=== PATIENT | female | born 1940 | race Caucasian/White ===

== ENCOUNTER → 2017-11-26 | Outpatient (CLI) | payer MEDICARE, BC ==
[~2017-11-26] MED LIST: ASPI325 PO; AZIT250 PO; CLIM.025TP TOP; MULVITMINF PO; OMEPRAZOLE MAGN20 MG PO; OSTEOFLEX
== END | disposition home or self-care (01) ==
LOC: LAB EV 09:50 → LAB SHORT 09:50
DX: N39.3 Stress incontinence (female) (male) (principal); R10.2 Pelvic and perineal pain; Z84.2 Family history of other diseases of the genitourinary system
CPT/HCPCS: 87086

== ENCOUNTER → 2018-07-06 | Outpatient (CLI) | payer MEDICARE, BC | END | disposition home or self-care (01) | LOC: LAB EV 11:30 → LAB SHORT 11:30 | DX: R82.90 Unspecified abnormal findings in urine (principal) | CPT/HCPCS: 87086 ==

== ENCOUNTER → 2020-01-31 | Outpatient (CLI) | payer MEDICARE, BC ==
[~2020-01-31] MED LIST changes: +ALORA1 EAC4 TOP; +Aspirin EC81 MG PO
[2020-02-01 14:45] LABS: Stool Occult Bld Immuno 1 Negative (NEGATIVE)
[2020-02-01 17:54] LABS: Campylobacter Sp Not Detected (NOT DETECT)
[2020-02-01 17:55] LABS: Adenovirus F 40/41 Not Detected (NOT DETECT); Astrovirus Not Detected (NOT DETECT); Cryptosporidium Not Detected (NOT DETECT); Cyclospora Cayetanensis Not Detected (NOT DETECT); E. Coli O157 Not Detected (NOT DETECT); Entamoeba Histolytica Not Detected (NOT DETECT); Enteroaggregative E. coli-EAEC Not Detected (NOT DETECT); Enteropathogenic E. coli-EPEC Detected (NOT DETECT); Enterotoxigenic E. coli-ETEC Not Detected (NOT DETECT); Giardia Lamblia Not Detected (NOT DETECT); Norovirus GI/GII Not Detected (NOT DETECT); Plesiomonas Shigelloides Not Detected (NOT DETECT); Rotavirus A Not Detected (NOT DETECT); Salmonella Sp Not Detected (NOT DETECT); Sapovirus Not Detected (NOT DETECT); Shiga Toxin-prod E. coli-STEC Not Detected (NOT DETECT); Shigella/Enteroin E. coli-EIEC Not Detected (NOT DETECT); Vibrio Cholerae Not Detected (NOT DETECT); Vibrio Sp Not Detected (NOT DETECT); Yersinia Enterocolitica Not Detected (NOT DETECT)
[2020-02-02 15:11] LABS: FATS, NEUTRAL Normal (.); FATS, TOTAL Normal (.)
== END | disposition home or self-care (01) ==
LOC: LAB SHORT 11:27 → LAB 11:27
PROVIDERS: Family Medicine
DX: K52.9 Noninfective gastroenteritis and colitis, unspecified (principal)
CPT/HCPCS: 0097U; 82705; G0328

== ENCOUNTER → 2020-05-05 | Outpatient (CLI) | payer MEDICARE, BC ==
[~2020-05-05] MED LIST changes: +DOC250 PO; +HYDR1TAB94 PO; +LIDO700A20 TOP; +Norco 5-325 Ta1 EACH PO
[2020-05-06 08:18] LABS: Stool Occult Bld Immuno 1 Negative (NEGATIVE)
== END | disposition home or self-care (01) ==
LOC: LAB 11:58 → LAB SHORT 11:58 → LAB FUT 01-26 10:55
PROVIDERS: Family Medicine
DX: K52.9 Noninfective gastroenteritis and colitis, unspecified (principal)
CPT/HCPCS: G0328

== ENCOUNTER → 2020-05-17 | Outpatient (CLI) | payer MEDICARE, BC | LOC: LAB 12:11 → LAB SHORT 12:11 | DX: Z20.828 Contact with and (suspected) exposure to other viral communicable diseases (principal) | CPT/HCPCS: U0003 ==

== ENCOUNTER 2020-07-19 06:13 | Emergency (ER) | payer MEDICARE, BC ==
[~2020-07-19] VITALS: Ht 165.1 cm; Wt 70.8 kg
[~2020-07-19 06:13] MED LIST changes: -DOC250 PO; -HYDR1TAB94 PO; -LIDO700A20 TOP; -Norco 5-325 Ta1 EACH PO
[2020-07-19 07:04] LABS: BASOPHILS ABSOLUTE AUTO 0.03 K/mm3 (0.00-0.23); BASOPHILS PERCENT AUTO 0 % (0-2); EOSINOPHILS ABSOLUTE AUTO 0.08 K/mm3 (0.00-0.68); EOSINOPHILS PERCENT AUTO 1 % (0-6); Hematocrit 40.9 % (33.0-51.0); Hemoglobin 13.9 g/dL (11.5-16.0); IMMATURE GRAN ABSOLUTE AUTO 0.03 K/mm3 (0.00-0.10); IMMATURE GRAN PERCENT AUTO 0 % (0-1); LYMPHOCYTES PERCENT AUTO 33 % (21-46); MONOCYTES ABSOLUTE AUTO 0.44 K/mm3 (0.16-1.47); MONOCYTES PERCENT AUTO 6 % (4-13); Mean Corpuscular HGB 33.2 pg (26.0-34.0); Mean Corpuscular Volume 98 fL (80-100); Mean Platelet Volume 9.2 fL (9.1-12.4); NEUTROPHILS ABSOLUTE AUTO 4.19 K/mm3 (1.96-9.15); NEUTROPHILS PERCENT AUTO 59 % (41-73); Platelet Count 191 K/mm3 (150-400); RDW Coefficient Variation 13.3 % (11.7-14.2); RDW Standard Deviation 47.2 fL (35.1-46.3); Red Blood Cell Count 4.19 M/mm3 (3.80-5.20); White Blood Cell Count 7.07 K/mm3 (4.00-11.30)
[2020-07-19 07:25] LABS: Alanine Aminotransfer (ALT/SGP 20 U/L (12-78); Albumin, Blood 3.1 g/dL (3.4-5.0); Albumin/Globulin Ratio 0.8 (0.8-1.8); Alk Phos 55 U/L (50-136); Anion Gap 5 mmol/L (6-16); Aspartate Aminotrans (AST/SGOT 17 U/L (12-37); Bilirubin, Total 1.1 mg/dL (0.1-1.0); Blood Urea Nitrogen 12 mg/dL (8-24); Bun/Creatinine Ratio 14.4 (12.0-20.0); CO2, Blood 26 mmol/L (21-32); Calcium, Blood 9.4 mg/dL (8.5-10.1); Chloride, Blood 110 mmol/L (98-108); Creatinine, Blood 0.84 mg/dL (0.40-1.00); Globulin, Blood 3.9 g/dL (2.2-4.0); Glomerular Filtration Rate >60 (60-); Glucose, Blood 94 mg/dL (70-99); Potassium, Blood 3.8 mmol/L (3.5-5.5); Sodium, Blood 141 mmol/L (136-145); Troponin I <0.015 ng/mL (0.000-0.040)
[2020-07-19 07:35] LABS: Source, Urine Clean Catch
[2020-07-19 07:45] LABS: Appearance, Urine Hazy (Clear); Bilirubin, Urine Neg (Neg); Blood, Urine 3+ (Neg); Color, Urine Yellow (P-Yellow); Glucose Qualitative, Urine Neg (Neg); Ketones, Urine Neg (Neg); Leukocyte Esterase, Urine 1+ (Neg); Nitrite, Urine Neg (Neg); Protein, Urine 1+ (Neg); Specific Gravity, Urine 1.015 (1.003-1.022); Urobilinogen, Urine NORM (Normal)
[2020-07-19 08:08] LABS: Bacteria Mod /hpf
[2020-07-19 08:13] LABS: Mucus Light (0-Heavy)
[2020-07-19 08:14] LABS: Squamous Epithelial Cells Many /hpf (Few)
[2020-07-19] MEDS ORDERED: LIDO700A20 TOP (08:49)
[2020-07-19] MEDS ORDERED: HYDR1TAB94 PO (08:49)
[2020-07-19] MEDS ORDERED: DOC250 PO (08:49)
== END 2020-07-19 09:00 | disposition home or self-care (01) ==
LOC: ER 06:13
PROVIDERS: Emergency Medicine
DX: S20.211A Contusion of right front wall of thorax, initial encounter (principal); S20.212A Contusion of left front wall of thorax, initial encounter; J44.9 Chronic obstructive pulmonary disease, unspecified; K21.9 Gastro-esophageal reflux disease without esophagitis; Z79.899 Other long term (current) drug therapy; Z88.0 Allergy status to penicillin; Z88.5 Allergy status to narcotic agent; Z88.1 Allergy status to other antibiotic agents; W18.30XA Fall on same level, unspecified, initial encounter
CPT/HCPCS: 36415; 71046; 80053; 81001; 84484; 85025; 87086; 93005; 93010; 96374; 96375; 99284-25; J2405; J3010

== ENCOUNTER 2020-07-31 14:11 | Emergency (ER) | payer MEDICARE, BC ==
[~2020-07-31] VITALS: Ht 170.2 cm; Wt 80.7 kg
[~2020-07-31 14:11] MED LIST changes: +DOC250 PO; +HYDR1TAB94 PO; +LIDO700A20 TOP
[2020-07-31 14:58] LABS: BASOPHILS ABSOLUTE AUTO 0.06 K/mm3 (0.00-0.23); BASOPHILS PERCENT AUTO 1 % (0-2); EOSINOPHILS ABSOLUTE AUTO 0.06 K/mm3 (0.00-0.68); EOSINOPHILS PERCENT AUTO 1 % (0-6); Hematocrit 44.9 % (33.0-51.0); Hemoglobin 15.3 g/dL (11.5-16.0); IMMATURE GRAN ABSOLUTE AUTO 0.02 K/mm3 (0.00-0.10); IMMATURE GRAN PERCENT AUTO 0 % (0-1); LYMPHOCYTES ABSOLUTE AUTO 2.52 K/mm3 (0.84-5.20); LYMPHOCYTES PERCENT AUTO 33 % (21-46); MONOCYTES ABSOLUTE AUTO 0.38 K/mm3 (0.16-1.47); MONOCYTES PERCENT AUTO 5 % (4-13); Mean Corpuscular HGB 33.3 pg (26.0-34.0); Mean Corpuscular HGB Conc 34.1 g/dL (31.5-36.5); Mean Corpuscular Volume 98 fL (80-100); Mean Platelet Volume 9.1 fL (9.1-12.4); NEUTROPHILS ABSOLUTE AUTO 4.63 K/mm3 (1.96-9.15); NEUTROPHILS PERCENT AUTO 60 % (41-73); Platelet Count 253 K/mm3 (150-400); RDW Standard Deviation 45.9 fL (35.1-46.3); White Blood Cell Count 7.67 K/mm3 (4.00-11.30)
[2020-07-31 15:17] LABS: Alanine Aminotransfer (ALT/SGP 40 U/L (12-78); Albumin, Blood 3.4 g/dL (3.4-5.0); Albumin/Globulin Ratio 0.8 (0.8-1.8); Alk Phos 94 U/L (50-136); Anion Gap 6 mmol/L (6-16); Aspartate Aminotrans (AST/SGOT 23 U/L (12-37); Bilirubin, Total 0.9 mg/dL (0.1-1.0); Blood Urea Nitrogen 12 mg/dL (8-24); Bun/Creatinine Ratio 14.5 (12.0-20.0); CO2, Blood 28 mmol/L (21-32); Calcium, Blood 9.7 mg/dL (8.5-10.1); Chloride, Blood 105 mmol/L (98-108); Creatinine, Blood 0.83 mg/dL (0.40-1.00); Globulin, Blood 4.2 g/dL (2.2-4.0); Glomerular Filtration Rate >60 (60-); Glucose, Blood 105 mg/dL (70-99); Potassium, Blood 4.2 mmol/L (3.5-5.5); Sodium, Blood 139 mmol/L (136-145); Total Protein, Blood 7.6 g/dL (6.4-8.2)
[2020-07-31 17:42] LABS: Source, Urine Clean Catch
[2020-07-31 17:47] LABS: Appearance, Urine Hazy (Clear); Bilirubin, Urine Neg (Neg); Blood, Urine 4+ (Neg); Color, Urine Yellow (P-Yellow); Glucose Qualitative, Urine Neg (Neg); Ketones, Urine Neg (Neg); Leukocyte Esterase, Urine 1+ (Neg); Nitrite, Urine Neg (Neg); Protein, Urine Neg (Neg); Urobilinogen, Urine NORM (Normal)
[2020-07-31 18:13] LABS: Bacteria Few /hpf; Squamous Epithelial Cells Few /hpf (Few); White Blood Cells, Urine 0-2 /hpf (0-5)
[2020-07-31] MEDS ORDERED: Norco 5-325 Ta1 EACH PO (20:21)
== END 2020-07-31 20:50 | disposition home or self-care (01) ==
LOC: ER 14:11
PROVIDERS: Emergency Medicine
DX: S22.42XA Multiple fractures of ribs, left side, initial encounter for closed fracture (principal); S32.029A Unspecified fracture of second lumbar vertebra, initial encounter for closed fracture; R31.9 Hematuria, unspecified; Z79.899 Other long term (current) drug therapy; X50.1XXA Overexertion from prolonged static or awkward postures, initial encounter; Z88.0 Allergy status to penicillin; Z88.5 Allergy status to narcotic agent; Z88.1 Allergy status to other antibiotic agents; J44.9 Chronic obstructive pulmonary disease, unspecified; K21.9 Gastro-esophageal reflux disease without esophagitis
CPT/HCPCS: 71101; 74176; 80053; 81001; 85025; 87086; 96374; 96375; 96376; 99284-25; A9270; J1885; J2270

== ENCOUNTER 2021-01-30 16:26 | Emergency (ER) | payer MEDICARE, BC ==
[~2021-01-30] VITALS: Ht 177.8 cm; Wt 79.4 kg
[~2021-01-30 16:26] MED LIST changes: +Norco 5-325 Ta1 EACH PO
[2021-01-30 17:51] LABS: Alanine Aminotransfer (ALT/SGP 45 U/L (12-78); Albumin, Blood 3.3 g/dL (3.4-5.0); Albumin/Globulin Ratio 0.8 (0.8-1.8); Alk Phos 64 U/L (50-136); Anion Gap 9 mmol/L (6-16); Aspartate Aminotrans (AST/SGOT 83 U/L (12-37); Bilirubin, Total 1.5 mg/dL (0.1-1.0); Blood Urea Nitrogen 12 mg/dL (8-24); Bun/Creatinine Ratio 16.2 (12.0-20.0); CO2, Blood 20 mmol/L (21-32); Calcium, Blood 9.9 mg/dL (8.5-10.1); Chloride, Blood 108 mmol/L (98-108); Creatinine, Blood 0.74 mg/dL (0.40-1.00); Globulin, Blood 4.4 g/dL (2.2-4.0); Glomerular Filtration Rate >60 (60-); Glucose, Blood 92 mg/dL (70-99); Potassium, Blood 4.1 mmol/L (3.5-5.5); Sodium, Blood 137 mmol/L (136-145); Total Protein, Blood 7.7 g/dL (6.4-8.2); Troponin I <0.015 ng/mL (0.000-0.040)
[2021-01-30 19:02] LABS: Magnesium, Blood 2.1 mg/dL (1.6-2.4)
[2021-01-30 19:13] LABS: BASOPHILS ABSOLUTE AUTO 0.03 K/mm3 (0.00-0.23); BASOPHILS PERCENT AUTO 0 % (0-2); EOSINOPHILS ABSOLUTE AUTO 0.03 K/mm3 (0.00-0.68); EOSINOPHILS PERCENT AUTO 0 % (0-6); Hematocrit 47.7 % (33.0-51.0); IMMATURE GRAN ABSOLUTE AUTO 0.03 K/mm3 (0.00-0.10); IMMATURE GRAN PERCENT AUTO 0 % (0-1); LYMPHOCYTES ABSOLUTE AUTO 2.31 K/mm3 (0.84-5.20); LYMPHOCYTES PERCENT AUTO 20 % (21-46); MONOCYTES ABSOLUTE AUTO 0.58 K/mm3 (0.16-1.47); MONOCYTES PERCENT AUTO 5 % (4-13); Mean Corpuscular HGB 33.1 pg (26.0-34.0); Mean Corpuscular HGB Conc 33.5 g/dL (31.5-36.5); Mean Corpuscular Volume 99 fL (80-100); Mean Platelet Volume 9.1 fL (9.1-12.4); NEUTROPHILS ABSOLUTE AUTO 8.35 K/mm3 (1.96-9.15); NEUTROPHILS PERCENT AUTO 74 % (41-73); Platelet Count 243 K/mm3 (150-400); RDW Coefficient Variation 13.2 % (11.7-14.2); RDW Standard Deviation 47.8 fL (35.1-46.3); Red Blood Cell Count 4.84 M/mm3 (3.80-5.20); White Blood Cell Count 11.33 K/mm3 (4.00-11.30)
== END 2021-01-30 22:08 | disposition home or self-care (01) ==
LOC: ER 16:26
PROVIDERS: Emergency Medicine
DX: R07.9 Chest pain, unspecified (principal); J44.9 Chronic obstructive pulmonary disease, unspecified; K21.9 Gastro-esophageal reflux disease without esophagitis; Z88.1 Allergy status to other antibiotic agents; Z88.0 Allergy status to penicillin; Z88.5 Allergy status to narcotic agent; Z88.8 Allergy status to other drugs, medicaments and biological substances; Z79.899 Other long term (current) drug therapy; Z87.891 Personal history of nicotine dependence
CPT/HCPCS: 36415; 71045; 80053; 83690; 83735; 83880; 84484; 85025; 93005; 93010; 99285-25; G0480

== ENCOUNTER → 2021-03-27 | Outpatient (CLI) | payer MEDICARE, BC | END | disposition home or self-care (01) | LOC: LAB 13:34 → LAB SHORT 13:34 | DX: N39.0 Urinary tract infection, site not specified (principal) | CPT/HCPCS: 87086 ==

== ENCOUNTER 2022-06-25 17:55 | Inpatient (IN) | payer OTHER, BC ==
[~2022-06-25] VITALS: Ht 167.6 cm; Wt 80.7 kg
[~2022-06-25 17:55] MED LIST changes: +OMEP20ER PO; -OMEPRAZOLE MAGN20 MG PO
[2022-06-25 18:19] LABS: BASOPHILS ABSOLUTE AUTO 0.02 K/mm3 (0.00-0.23); BASOPHILS PERCENT AUTO 0 % (0-2); EOSINOPHILS ABSOLUTE AUTO 0.01 K/mm3 (0.00-0.68); EOSINOPHILS PERCENT AUTO 0 % (0-6); Hematocrit 44.2 % (33.0-51.0); Hemoglobin 15.5 g/dL (11.5-16.0); IMMATURE GRAN ABSOLUTE AUTO 0.04 K/mm3 (0.00-0.10); IMMATURE GRAN PERCENT AUTO 0 % (0-1); LYMPHOCYTES ABSOLUTE AUTO 1.44 K/mm3 (0.84-5.20); LYMPHOCYTES PERCENT AUTO 15 % (21-46); MONOCYTES ABSOLUTE AUTO 0.71 K/mm3 (0.16-1.47); MONOCYTES PERCENT AUTO 7 % (4-13); Mean Corpuscular HGB 34.2 pg (26.0-34.0); Mean Corpuscular HGB Conc 35.1 g/dL (31.5-36.5); Mean Corpuscular Volume 98 fL (80-100); Mean Platelet Volume 9.3 fL (9.1-12.4); NEUTROPHILS ABSOLUTE AUTO 7.43 K/mm3 (1.96-9.15); NEUTROPHILS PERCENT AUTO 77 % (41-73); NRBC ABSOLUTE 0.02 K/mm3 (0.00-0.02); NRBC Auto 0.2 /100 WBC (0.0-0.2); Platelet Count 208 K/mm3 (150-400); RDW Coefficient Variation 13.6 % (11.7-14.2); RDW Standard Deviation 48.4 fL (35.1-46.3); Red Blood Cell Count 4.53 M/mm3 (3.80-5.20); White Blood Cell Count 9.65 K/mm3 (4.00-11.30)
[2022-06-25] MEDS ORDERED: OMEP20ER PO (18:29)
[2022-06-25 18:52] LABS: Albumin, Blood 3.5 g/dL (3.4-5.0); Bilirubin, Total 1.9 mg/dL (0.1-1.0); Bun/Creatinine Ratio 9.9 (12.0-20.0); Calcium, Blood 9.7 mg/dL (8.5-10.1); Creatinine, Blood 0.81 mg/dL (0.40-1.00); Globulin, Blood 3.6 g/dL (2.2-4.0); Potassium, Blood 3.7 mmol/L (3.5-5.5); Total Protein, Blood 7.1 g/dL (6.4-8.2)
[2022-06-25 19:11] LABS: Creatine Kinase MB 11.6 ng/mL (0.0-3.6); Creatine Kinase MB Index 0.9 (0.0-4.0)
[2022-06-25 23:03] LABS: Source, Urine Foley catheter
[2022-06-25 23:11] LABS: Appearance, Urine Clear (Clear); Bilirubin, Urine Neg (Neg); Blood, Urine 1+ (Neg); Color, Urine Yellow (P-Yellow); Glucose Qualitative, Urine Neg (Neg); Ketones, Urine 3+ (Neg); Leukocyte Esterase, Urine Neg (Neg); Nitrite, Urine Neg (Neg); Protein, Urine 1+ (Neg); Specific Gravity, Urine 1.025 (1.003-1.022); Urobilinogen, Urine NORM (Normal)
[2022-06-25 23:21] LABS: Hyaline Casts 0-2 /lpf (0-2)
[2022-06-25 23:22] LABS: Bacteria Few /hpf; Red Blood Cells, Urine 0-2 /hpf (0-2); Squamous Epithelial Cells Mod /hpf (Few); White Blood Cells, Urine 0-2 /hpf (0-5)
--- NOTE | 2022-06-26 00:02 | NUR ---
PATIENT ARRIVED TO UNIT @2200 VITALS STABLE, BACON PLACED PER ORDERS. IV FLUIDS RUNNING. PATIENT IS ALERT BUT FORGERT OF DETAILS AND HISTORY. BED ALARM IS PLACED FOR SAFETY. PATIENT IS ORIENTED TO CALL LIGHT SYSTEM. ORDERS REVIEWED, SCD'S IN PLACE. SURGICAL PACKET ON CHART. WILL MONITOR FOR CHANGES AND TREAT PER ORDERS.
--- NOTE | 2022-06-26 04:33 | NUR ---
SUMMARY NO ACUTE EVENTS SINCE LAST NOTE. PATIENT ADMITTED FOR L HIP FX. L LEG IS EXTERNALLY ROTATED AND VISIBLY SHORTER THAN THE RIGHT LEG. PATIENT MEDICATED FOR PAIN PER EMAR. NPO SINCE MIDNIGHT, SURGICAL SAND MIXER OPERATOR APPLIED TO LEFT LEG. VSS, BED ALARM IS ON FOR SAFETY, CALL LIGHT IN REACH.
--- NOTE | 2022-06-26 13:23 | NUR ---
TO OR VIA HOSPITAL BED
--- NOTE | 2022-06-26 19:22 | NUR ---
SHIFT SUMMARY ASSUMED CARE OF PATIENT AT 1400. PATIENT WAS AT OR AND RETURNED AT 1730. ALERT AND ORIENTED IN BED. DENIED PAIN, N/V. POST OP VSS. ROUTINE IV FLUIDS RUNNING. TXA 1ST DOSE GIVEN. LEFT HIP WITH AQUACEL WITH SMALL AMOUNT OF SS DRAINAGE. ABLE TO WIGGLE LE TOES AND ANKLES, REPORTS FULL SENSATION. BACON WITH STEVE URINE OUTPUT. TOLERATING SIPS OF WATER. NSR IN THE 90S ON TELE PER SCRAP DROP ENGINEER. SON ATTENTIVE IN ROOM. REPORT GIVEN TO ROAD PRODUCTION GENERAL MANAGER RN.
--- NOTE | 2022-06-27 06:00 | NUR ---
SHIFT SUMMARY: PODx1 L PEDRO LUIS HIP. X1 AQUACEL REMAINS IN PLACE WITH SLIGHT DRAINAGE NOTED, REMAINS UNCHANGED SINCE START OF SHIFT. RESTED COMFORTABLY T/O THE NIGHT. MEDICATED FOR PAIN ONCE DURING THE SHIFT. PAIN WAS WELL MANAGED. TOLERATING PO FLUIDS AND SNACKS AT THIS TIME. DOES NOT REPORT A BIG APPETITE. BACON REMAINS IN PLACE, PATENT AND DRAINING TO GRAVITY. CALL LIGHT IN REACH, WILL GIVE REPORT TO DAY TIME RN.
--- NOTE | 2022-06-27 09:55 | NUR ---
06/27/22 0955 Latrice Isabel VERIFICATIONS: EDIT CHART.
--- NOTE | 2022-06-27 10:18 | NUR ---
LOW BP PT REPORTS FEELING DIZZY WITH SYSTOLIC BP OF 88. DR. ROBLES NOTIFIED. PLAN TO GIVE 500ML BOLUS TO IMPROVE BP.
--- NOTE | 2022-06-27 14:34 | NUR ---
Pt. is sitting up and welcomes my visit. Pt. is pleasant but at times displays evidence of confusion. Listen with empathy and a calmiing presence. Facilitated a life review. pt. verbalizes that her children are local and support her. Pt. also verbalizes that she expects to go to a local SNF for rehab. Pt. displays evidence of being comforted and having trust in her medical and spiritual care. Prayed with Pt. Pt. verbalizes gratitude for the spiritual care visit.
--- NOTE | 2022-06-27 16:16 | NUR ---
SHIFT SUMMARY PT IS POD#1 FROM L PEDRO LUIS HIP REPAIR. PAIN MANAGED WITH PO PAIN MEDICATION. PT WORKED WITH THERAPY TODAY AND IS A 2 PERSON ASSIST. BP DROPPED DURING THERAPY BUT BP IMPROVED AFTER A FLUID BOLUS. WILL MONITOR UNTIL REPORT TO FRANKY ROBERTO.
--- NOTE | 2022-06-27 19:33 | NUR ---
URINARY OUTPUT PT HAD 200ML OF URINE OUT IN BACON CATH PRIOR TO REMOVAL OF CATHETER. NEARING 6 HOURS SINCE CATHETER REMOVED AND PT HAS NOT VOIDED. BLADDER SCAN SHOWED 153ML IN BLADDER. PT ENCOURAGED TO DRINK FLUIDS. DR. ELIZABETH NOTIFIED.
--- NOTE | 2022-06-28 03:31 | NUR ---
BILLING SERVICES MANAGER SUMMARY PT IS POD 1 FOR L PEDRO LUIS HIP. SMALL AREA OF SHADOWING TO AQUACEL DRESSING THAT IS UNCHANGED FROM START OF SHIFT. PT AAOX4 AND PLEASANT. PT IS A 2 MAX ASSIST WHEN OUT OF BED SO HAS ELECTED TO USE BEDPAN TO VOID. MEDICATED ONCE FOR PAIN WITH OXY 5MG AND SCHEDULED TYLENOL. VSS, WILL CONTINUE TO MONITOR.
[2022-06-28 05:31] LABS: BASOPHILS ABSOLUTE AUTO 0.03 K/mm3 (0.00-0.23); BASOPHILS PERCENT AUTO 1 % (0-2); EOSINOPHILS ABSOLUTE AUTO 0.12 K/mm3 (0.00-0.68); EOSINOPHILS PERCENT AUTO 2 % (0-6); Hematocrit 34.6 % (33.0-51.0); Hemoglobin 11.9 g/dL (11.5-16.0); IMMATURE GRAN ABSOLUTE AUTO 0.02 K/mm3 (0.00-0.10); IMMATURE GRAN PERCENT AUTO 0 % (0-1); LYMPHOCYTES ABSOLUTE AUTO 1.03 K/mm3 (0.84-5.20); LYMPHOCYTES PERCENT AUTO 18 % (21-46); MONOCYTES PERCENT AUTO 5 % (4-13); Mean Corpuscular HGB 34.1 pg (26.0-34.0); Mean Corpuscular HGB Conc 34.4 g/dL (31.5-36.5); Mean Corpuscular Volume 99 fL (80-100); Mean Platelet Volume 9.7 fL (9.1-12.4); NEUTROPHILS ABSOLUTE AUTO 4.38 K/mm3 (1.96-9.15); NEUTROPHILS PERCENT AUTO 75 % (41-73); Platelet Count 141 K/mm3 (150-400); RDW Coefficient Variation 13.4 % (11.7-14.2); RDW Standard Deviation 48.2 fL (35.1-46.3); Red Blood Cell Count 3.49 M/mm3 (3.80-5.20); White Blood Cell Count 5.88 K/mm3 (4.00-11.30)
[2022-06-28 05:47] LABS: Albumin, Blood 2.3 g/dL (3.4-5.0); Anion Gap 2 mmol/L (6-16); Blood Urea Nitrogen 9 mg/dL (8-24); Bun/Creatinine Ratio 11.2 (12.0-20.0); CO2, Blood 29 mmol/L (21-32); Chloride, Blood 103 mmol/L (98-108); Glomerular Filtration Rate 74 (60-); Glucose, Blood 105 mg/dL (70-99); Magnesium, Blood 1.9 mg/dL (1.6-2.4); Phosphorus, Blood 2.8 mg/dL (2.5-4.9); Potassium, Blood 3.7 mmol/L (3.5-5.5); Sodium, Blood 134 mmol/L (136-145)
[2022-06-28 12:18] LABS: SARS-Cov-2 (COVID-19) PCR, MMC NEGATIVE (NEGATIVE)
--- NOTE | 2022-06-28 12:38 | NUR ---
ALCOHOL WITHDRAWAL UPON AM ASSESSMENT PT WAS NOTED TO HAVE INCREASED DROWSINESS, SLURRED SPEECH, SLOW TO RESPOND, AGGITATION, ANXIETY, NAUSEA, ITCHING, AND ISSUES WITH DEPTH PERCEPTION. CIWA SCORE OF 7. DR. ROBLES NOTIFIED OF CONCERNS. PT DECLINED LIBRIUM AND STATED SHE DOES NOT PLAN TO STOP DRINKING. INITIALLY PT ALSO DECLINED A GLASS OF WINE. PT WAS EDUCATED ABOUT THE RISKS OF ALCOHOL WITHDRAWAL AND THAT WORSENING WITHDRAWAL SYMPTOMS LIKELY IF SHE WAS UNWILLING TO DRINK WINE OR TAKE LIBRIUM. PT CHOSE TO HAVE A GLASS OF WINE. PT WAS REASSESSED AT 1112 AND CIWA SCORE DECREASED TO 4 AFTER PT HAD A GLASS OF WINE. PT WAS IRRITABLE WHEN DISCUSSING ALCOHOL USE, EDUCATION WAS GIVEN REGARDING IMPORTANCE OF MANAGING WITHDRAWAL. WILL CONTINUE TO MONITOR.
--- NOTE | 2022-06-28 14:55 | NUR ---
18G IV REMOVED FROM LFA AT THIS TIME. SITE WNL. CATHETER INTACT.
--- NOTE | 2022-06-28 15:05 | NUR ---
ATTEMPTED TO CALL REPORT TO SHIRLENE
--- NOTE | 2022-06-28 15:18 | NUR ---
ATTEMPTED TO CALL REPORT TO SHIRLENE.
--- NOTE | 2022-06-28 15:25 | NUR ---
ATTEMPT TO CALL REPORT TO [facility]. NOTIFIED [facility] STAFF THAT TRANSPORT HAS ARRIVED FOR THE PT AND THIS RN IS HOPING TO GIVE REPORT PRIOR TO PT LEAVING WITH TRANSPORT.
--- NOTE | 2022-06-28 15:41 | NUR ---
DISCHARGE REPORT GIVEN TO ZARIA AT [facility]. PT DISCHARGED AT APPROXIMATELY 1535. PAIN MANAGED AT TIME OF DISCHARGE. PACKET AND CLEAN DRESSINGS SENT WITH TRANSPORT. VSS.
== END 2022-06-28 15:35 | DRG 522 ==
LOC: ER 17:55 → SURS 21:28
PROVIDERS: Emergency Medicine; Family Medicine; Orthopaedic Surgery; ADMIT Internal Medicine
PROC: 0SRS0J9 Replacement of Left Hip Joint, Femoral Surface with Synthetic Substitute, Cemented, Open Approach (ICD-10-PCS; principal; 2022-06-26 14:00)
DX: S72.002A Fracture of unspecified part of neck of left femur, initial encounter for closed fracture (principal); M62.82 Rhabdomyolysis; Z20.822 Contact with and (suspected) exposure to COVID-19; Z28.21 Immunization not carried out because of patient refusal; K21.9 Gastro-esophageal reflux disease without esophagitis; J44.9 Chronic obstructive pulmonary disease, unspecified; F10.10 Alcohol abuse, uncomplicated; F41.9 Anxiety disorder, unspecified; F32.A Depression, unspecified; E66.3 Overweight; Z90.49 Acquired absence of other specified parts of digestive tract; Z98.49 Cataract extraction status, unspecified eye; Z98.890 Other specified postprocedural states; Z87.891 Personal history of nicotine dependence; Z88.0 Allergy status to penicillin; Z88.1 Allergy status to other antibiotic agents; Z88.5 Allergy status to narcotic agent; Z88.8 Allergy status to other drugs, medicaments and biological substances; Z79.899 Other long term (current) drug therapy; W18.39XA Other fall on same level, initial encounter; Y92.019 Unspecified place in single-family (private) house as the place of occurrence of the external cause
CPT/HCPCS: 36415; 70450; 72192; 73502; 73560-LT; 80053; 80069; 81001; 82550; 82553; 82947; 83735; 85025; 93005; 93010; 96374; 96375; 97110; 97162; 97166; 97530; 97530-CQ; 97535; 99285-25; A9270; C1713; C1776; J0171; J0690; J0735; J1170; J1885; J2370; J2405; J2704; J2795; J3010; J7030; J7120; U0004

== ENCOUNTER → 2022-11-20 | Outpatient (CLI) | payer OTHER, BC ==
[2022-11-20 15:19] LABS: BASOPHILS ABSOLUTE AUTO 0.05 K/mm3 (0.00-0.23); BASOPHILS PERCENT AUTO 1 % (0-2); EOSINOPHILS ABSOLUTE AUTO 0.05 K/mm3 (0.00-0.68); EOSINOPHILS PERCENT AUTO 1 % (0-6); Hematocrit 44.4 % (33.0-51.0); Hemoglobin 15.5 g/dL (11.5-16.0); IMMATURE GRAN ABSOLUTE AUTO 0.02 K/mm3 (0.00-0.10); IMMATURE GRAN PERCENT AUTO 0 % (0-1); LYMPHOCYTES ABSOLUTE AUTO 2.04 K/mm3 (0.84-5.20); LYMPHOCYTES PERCENT AUTO 41 % (21-46); MONOCYTES ABSOLUTE AUTO 0.31 K/mm3 (0.16-1.47); MONOCYTES PERCENT AUTO 6 % (4-13); Mean Corpuscular HGB 33.4 pg (26.0-34.0); Mean Corpuscular HGB Conc 34.9 g/dL (31.5-36.5); Mean Corpuscular Volume 96 fL (80-100); NEUTROPHILS ABSOLUTE AUTO 2.54 K/mm3 (1.96-9.15); NEUTROPHILS PERCENT AUTO 51 % (41-73); RDW Coefficient Variation 14.6 % (11.7-14.2); RDW Standard Deviation 50.4 fL (35.1-46.3); Red Blood Cell Count 4.64 M/mm3 (3.80-5.20); White Blood Cell Count 5.01 K/mm3 (4.00-11.30)
[2022-11-20 15:20] LABS: Mean Platelet Volume 10.1 fL (9.1-12.4); Platelet Count 156 K/mm3 (150-400)
[2022-11-20 15:36] LABS: Albumin, Blood 3.6 g/dL (3.4-5.0); Albumin/Globulin Ratio 1.1 (0.8-1.8); Bilirubin, Total 1.3 mg/dL (0.1-1.0); Bun/Creatinine Ratio 10.8 (12.0-20.0); Creatinine, Blood 1.02 mg/dL (0.40-1.00); Globulin, Blood 3.4 g/dL (2.2-4.0); Potassium, Blood 4.1 mmol/L (3.5-5.5); Thyroid Stimulating Hormone 2.57 uIU/mL (0.360-4.800)
== END | disposition home or self-care (01) ==
LOC: LAB SHORT 14:56 → LAB 14:56
PROVIDERS: Physician Assistant
DX: R53.83 Other fatigue (principal)
CPT/HCPCS: 80053; 84443; 85025

== ENCOUNTER → 2022-11-22 | Outpatient (CLI) | payer OTHER, BC ==
[2022-11-22 16:06] LABS: Appearance, Urine Clear (Clear); Bilirubin, Urine Neg (Neg); Blood, Urine Neg (Neg); Color, Urine Yellow (P-Yellow); Glucose Qualitative, Urine Neg (Normal); Ketones, Urine Neg (Neg); Leukocyte Esterase, Urine Neg (Neg); Nitrite, Urine Neg (Neg); Protein, Urine Neg (Neg); Urobilinogen, Urine NORM (Normal)
== END | disposition home or self-care (01) ==
LOC: LAB 16:01 → LAB SHORT 16:01
PROVIDERS: Physician Assistant
DX: R53.83 Other fatigue (principal)
CPT/HCPCS: 81003

== ENCOUNTER 2024-01-13 15:29 | Emergency (ER) | payer OTHER, BC ==
[~2024-01-13] VITALS: Ht 167.6 cm; Wt 72.6 kg
[2024-01-13 15:58] LABS: BASOPHILS ABSOLUTE AUTO 0.01 K/mm3 (0.00-0.23); BASOPHILS PERCENT AUTO 0 % (0-2); EOSINOPHILS PERCENT AUTO 0 % (0-6); Hematocrit 50.6 % (33.0-51.0); Hemoglobin 17.5 g/dL (11.5-16.0); IMMATURE GRAN ABSOLUTE AUTO 0.02 K/mm3 (0.00-0.10); IMMATURE GRAN PERCENT AUTO 0 % (0-1); LYMPHOCYTES ABSOLUTE AUTO 0.86 K/mm3 (0.84-5.20); LYMPHOCYTES PERCENT AUTO 10 % (21-46); MONOCYTES ABSOLUTE AUTO 0.43 K/mm3 (0.16-1.47); MONOCYTES PERCENT AUTO 5 % (4-13); Mean Corpuscular HGB 34.2 pg (26.0-34.0); Mean Corpuscular HGB Conc 34.6 g/dL (31.5-36.5); Mean Corpuscular Volume 99 fL (80-100); Mean Platelet Volume 8.7 fL (9.1-12.4); NEUTROPHILS ABSOLUTE AUTO 7.22 K/mm3 (1.96-9.15); NEUTROPHILS PERCENT AUTO 85 % (41-73); Platelet Count 210 K/mm3 (150-400); RDW Standard Deviation 55.4 fL (35.1-46.3); Red Blood Cell Count 5.12 M/mm3 (3.80-5.20); White Blood Cell Count 8.54 K/mm3 (4.00-11.30)
[2024-01-13 16:17] LABS: Albumin, Blood 3.6 g/dL (3.4-5.0); Albumin/Globulin Ratio 0.9 (0.8-1.8); Bilirubin, Total 2.8 mg/dL (0.1-1.0); Bun/Creatinine Ratio 9.1 (12.0-20.0); Calcium, Blood 9.8 mg/dL (8.5-10.1); Creatinine, Blood 0.66 mg/dL (0.40-1.00); Globulin, Blood 4.1 g/dL (2.2-4.0); Potassium, Blood 3.9 mmol/L (3.5-5.5); Total Protein, Blood 7.7 g/dL (6.4-8.2)
[2024-01-13] MEDS ORDERED: Ondansetron HCl 2 MG / ML 2ML Vial IV ONE (16:45)
[2024-01-13] MEDS ORDERED: Morphine Sulfate 4 MG/1 ML Injection IV ONE (16:45)
[2024-01-13 17:22] LABS: Source, Urine Voided
[2024-01-13 17:26] LABS: Appearance, Urine Clear (Clear); Bilirubin, Urine Neg (Neg); Blood, Urine 2+ (Neg); Color, Urine Yellow (P-Yellow); Glucose Qualitative, Urine Neg (Neg); Ketones, Urine 2+ (Neg); Leukocyte Esterase, Urine 1+ (Neg); Nitrite, Urine Neg (Neg); Protein, Urine 1+ (Neg); Urobilinogen, Urine NORM (Normal)
[2024-01-13 17:47] LABS: Squamous Epithelial Cells Few /hpf (Few); Yeast/Fungi Urine Many /hpf
[2024-01-13 17:48] LABS: Bacteria Mod /hpf
[2024-01-13] MEDS ORDERED: HYDROCODONE-AC1 EA10 PO (19:29)
[2024-01-13] MEDS ORDERED: RX Prepack 6 Tabs Oxycodone 5mg UD ONE (19:45)
[2024-01-13 19:56] VITALS: BP 169/83
== END 2024-01-13 20:14 | disposition home or self-care (01) ==
LOC: ER 15:29
PROVIDERS: Emergency Medicine
DX: S12.110A Anterior displaced Type II dens fracture, initial encounter for closed fracture (principal); J98.59 Other diseases of mediastinum, not elsewhere classified; K21.9 Gastro-esophageal reflux disease without esophagitis; J44.9 Chronic obstructive pulmonary disease, unspecified; W22.8XXA Striking against or struck by other objects, initial encounter; Z87.891 Personal history of nicotine dependence; Z79.899 Other long term (current) drug therapy; Z88.0 Allergy status to penicillin; Z88.5 Allergy status to narcotic agent; Z88.1 Allergy status to other antibiotic agents; Z88.8 Allergy status to other drugs, medicaments and biological substances
CPT/HCPCS: 70450; 70498; 72125; 80053; 81001; 85025; 87086; 96374-59; 96375; 99284-25; A9270; J2270; J2405; L0160; Q9967

== ENCOUNTER 2024-01-14 13:35 | Inpatient (IN) | payer OTHER, BC ==
[~2024-01-14] VITALS: Ht 177.8 cm; Wt 79.5 kg
[~2024-01-14 13:35] MED LIST changes: +HYDROCODONE-AC1 EA10 PO
[2024-01-14 14:48] VITALS: BP 130/86
[2024-01-14] MEDS ORDERED: OxyCODONE HCL 5 MG TAB PO PRN (15:10)
[2024-01-14] MEDS ORDERED: Morphine Sulfate 4 MG/1 ML Injection IV PRN (15:10)
[2024-01-14] MEDS ORDERED: ChlordiazePOXIDE 25 MG Cap PO PRN (15:25)
[2024-01-14] MEDS ORDERED: LORazepam 2 MG/ML 1ML Injection IV PRN (15:25)
[2024-01-14] MEDS ORDERED: Thiamine HCl 100 MG in NS 50 ML IV SCH (16:00)
[2024-01-14] MEDS ORDERED: Folic Acid 1 MG in NS 50 ML IV SCH (16:00)
[2024-01-14] MEDS ORDERED: NS 250 ML IV PRN (16:35)
--- NOTE | 2024-01-14 18:18 | NUR ---
SHIFT SUMMARY PT AOX3-4, SMALL MOMENTS OF CONFUSION. CIWA PROTOCOL IN PLACE. PT HAS A C2 FRACTURE WITH A C-COLLAR ON. C-COLLAR PRECAUTIONS IN PLACE WHENEVER MOVING THE PT. PURWICK IN PLACE. NO C/O PAIN SINCE DIRECT ADMIT TO THE FLOOR. DAUGHTER AND FAMILY UPDATED, AT THE BS DURING THE ADMIT AND PROVIDED INFORMATION. PT ALLEGEDLY DRINKS 3-6 GLASSES OF WINE PER DAY. PT REPOSITIONED USING C-SPINE PRECAUTIONS. CALL LIGHT WITHIN REACH, BED LOCKED AND IN THE LOWEST POSITION. WILL REPORT TO ONCOMING NURSE.
[2024-01-14] MEDS ORDERED: CefTRIAXone Sodium 1,000 MG in NS 100 ML IV SCH (20:00)
[2024-01-14 20:45] VITALS: BP 148/78
--- NOTE | 2024-01-14 21:40 | NUR ---
PT CIWA SCORE OF 8. PT REFUSED ORAL 25 MG OF LIBRIUM STATING, "I AM NOT AN ALCOHOLIC SO YOU NEED TO FIGURE THAT OUT". PT ALSO HAS UTI WHICH COULD BE CONTRIBUTING TO SLIGHT CONFUSION AND HALLUCINATIONS. PT HAS PRN ATIVAN AND WILL ADMINISTER IF CIWA SCORE INCREASES, FOR NOW PT IN STABLE WITHDRAWAL. C COLLAR IN PLACE AND THIRD PERSON UTILIZED TO STABILIZE NECK WITH MOBILITY IN BED.
[2024-01-15] MEDS ORDERED: Acetaminophen 500 MG Tab PO SCH
[2024-01-15 03:27] VITALS: BP 124/71
[2024-01-15 05:25] LABS: BASOPHILS ABSOLUTE AUTO 0.03 K/mm3 (0.00-0.23); BASOPHILS PERCENT AUTO 0 % (0-2); EOSINOPHILS ABSOLUTE AUTO 0.01 K/mm3 (0.00-0.68); EOSINOPHILS PERCENT AUTO 0 % (0-6); Hemoglobin 14.8 g/dL (11.5-16.0); IMMATURE GRAN ABSOLUTE AUTO 0.02 K/mm3 (0.00-0.10); IMMATURE GRAN PERCENT AUTO 0 % (0-1); LYMPHOCYTES ABSOLUTE AUTO 1.74 K/mm3 (0.84-5.20); LYMPHOCYTES PERCENT AUTO 17 % (21-46); MONOCYTES PERCENT AUTO 4 % (4-13); Mean Corpuscular HGB 34.2 pg (26.0-34.0); Mean Corpuscular HGB Conc 33.6 g/dL (31.5-36.5); Mean Corpuscular Volume 102 fL (80-100); Mean Platelet Volume 9.6 fL (9.1-12.4); NEUTROPHILS ABSOLUTE AUTO 8.13 K/mm3 (1.96-9.15); NEUTROPHILS PERCENT AUTO 79 % (41-73); Platelet Count 177 K/mm3 (150-400); RDW Coefficient Variation 15.3 % (11.7-14.2); RDW Standard Deviation 57.1 fL (35.1-46.3); Red Blood Cell Count 4.33 M/mm3 (3.80-5.20); White Blood Cell Count 10.33 K/mm3 (4.00-11.30)
[2024-01-15 05:47] LABS: Bun/Creatinine Ratio 16.7 (12.0-20.0); Calcium, Blood 10.6 mg/dL (8.5-10.1); Creatinine, Blood 0.96 mg/dL (0.40-1.00); Potassium, Blood 3.8 mmol/L (3.5-5.5)
[2024-01-15] MEDS ORDERED: Omeprazole 20 MG CapCR PO SCH (06:00)
[2024-01-15 07:21] VITALS: BP 121/72
--- NOTE | 2024-01-15 07:38 | NUR ---
SHIFT SUMMARY PT C COLLAR IN PLACE FOR C2 FRACTURE. PAIN MANAGED WITH 5 MG OF OXY GIVEN X2. 3L NC MAINTAINING SATS. 2 PERSON TO REPOSITION IN BED. PT ETOH HX, LAST DRINK FRIDAY. CIWA SCORE OF 8 AND 5 OVERNIHGT, STABLE WITHDRAWL. PT REFUSED 25 MG OF LIBRIUM WITH THE SCORE OF 8 AT BEGINNING OF SHIFT. PT WAS HALLUCINATING AT THIS TIME AND MILDLY ANXIOUS BUT WAS ABLE TO GO TO SLEEP WITH ADMIN OF OXY. DOES NOT CALL APPROPRIATELY, YELLS OUT FOR HELP. PUREWICK IN PLACE, PENDING PT EVAL. URINE DARK/STEVE. NEEDS TO BE REMINDED/EDUCATED OF PUREWICK USAGE. BED ALARM ON.
[2024-01-15] MEDS ORDERED: Heparin Sodium,Porcine 5,000 UNIT/0.5 ML SDV SC SCH (09:00)
[2024-01-15] MEDS ORDERED: OxyCODONE HCL 5 MG TAB PO PRN (09:25)
[2024-01-15 15:35] VITALS: BP 110/76
[2024-01-15] MEDS ORDERED: Polyethylene Glycol 3350 17 gm PO PRN (17:00)
[2024-01-15] MEDS ORDERED: Docusate Sodium/Senna 1 Tab PO PRN (17:00)
[2024-01-15 19:12] VITALS: BP 132/85
[2024-01-16 03:29] VITALS: BP 134/75
[2024-01-16 05:49] LABS: BASOPHILS ABSOLUTE AUTO 0.02 K/mm3 (0.00-0.23); BASOPHILS PERCENT AUTO 0 % (0-2); EOSINOPHILS ABSOLUTE AUTO 0.05 K/mm3 (0.00-0.68); EOSINOPHILS PERCENT AUTO 1 % (0-6); Hematocrit 43.2 % (33.0-51.0); Hemoglobin 14.3 g/dL (11.5-16.0); IMMATURE GRAN ABSOLUTE AUTO 0.02 K/mm3 (0.00-0.10); IMMATURE GRAN PERCENT AUTO 0 % (0-1); LYMPHOCYTES PERCENT AUTO 18 % (21-46); MONOCYTES ABSOLUTE AUTO 0.36 K/mm3 (0.16-1.47); MONOCYTES PERCENT AUTO 5 % (4-13); Mean Corpuscular HGB 34.5 pg (26.0-34.0); Mean Corpuscular HGB Conc 33.1 g/dL (31.5-36.5); Mean Corpuscular Volume 104 fL (80-100); Mean Platelet Volume 9.6 fL (9.1-12.4); NEUTROPHILS ABSOLUTE AUTO 6.09 K/mm3 (1.96-9.15); NEUTROPHILS PERCENT AUTO 77 % (41-73); Platelet Count 153 K/mm3 (150-400); RDW Coefficient Variation 15.1 % (11.7-14.2); RDW Standard Deviation 58.6 fL (35.1-46.3); Red Blood Cell Count 4.14 M/mm3 (3.80-5.20); White Blood Cell Count 7.94 K/mm3 (4.00-11.30)
[2024-01-16 06:12] LABS: Bun/Creatinine Ratio 21.6 (12.0-20.0); Creatinine, Blood 0.74 mg/dL (0.40-1.00); Potassium, Blood 3.7 mmol/L (3.5-5.5)
[2024-01-16 07:09] VITALS: BP 137/74
--- NOTE | 2024-01-16 07:11 | NUR ---
DIRECTOR RADIO NEWS SUMMARY NO ACUTE CHANGES OVERNIGHT. URINE IS VERY DARK. ENCOURAGED FLUIDS WITH EVERY INTERACTION. PT IS WITHDRAWING FROM ALCOHOL WITH ANXIETY, FIDGITING, RESTLESS LEGS, HALLUCINATIONS AND CONFUSION. MEDICATED WITH ATIVAN ONCE AND LIBRIUM. PT DOESNT WANT TO MOVE OR BE TURNED. EDUCATED SEVERAL TIMES. WE DID TURN HER EVERY 2 HOURS AND IT DID CAUSE HER SEVERE PAIN EVERY TIME. MEDICATED WITH 1MG IV MORPHINE BEFORE TURNING HER AND IT DID HELP SOME. TRIED TO WEAN O2 BUT PT SATS 89% ON RA.
[2024-01-16 15:13] VITALS: BP 148/81
--- NOTE | 2024-01-16 18:41 | NUR ---
SHIFT SUMMARY; PATIENT VERY SEDATE THROUGHOUT DAY. SHE WAS ABLE TO WORK WITH PT AND OT TODAY, SHE SAT IN CHAIR IN ROOM FOR A FEW HOURS TODAY. FAMILY IN ROOM MOST OF DAY. PATIENT EATS MINIMAL AMOUNT OF MEALS TODAY. HAD DIFFICULTY WITH FLUIDS AND WAS NOT SAFELY ABLE TO SWALLOW HER PILLS. HER FAMILY REQUESTED THAT SHE BE CONSIDERED FOR TRANSER TO [facility] FOR POSSIBLE SURGERY ON HER C2 FRACTURE. WILL CONSULT ANOTHER NEURO SURGEON AND GET BACK TO FAMILY IF THIS IS POSSIBLE.
[2024-01-16 19:25] VITALS: BP 141/90
[2024-01-17 03:02] VITALS: BP 154/90
[2024-01-17 05:24] LABS: BASOPHILS ABSOLUTE AUTO 0.02 K/mm3 (0.00-0.23); BASOPHILS PERCENT AUTO 0 % (0-2); EOSINOPHILS ABSOLUTE AUTO 0.06 K/mm3 (0.00-0.68); EOSINOPHILS PERCENT AUTO 1 % (0-6); Hematocrit 41.5 % (33.0-51.0); Hemoglobin 14.3 g/dL (11.5-16.0); IMMATURE GRAN ABSOLUTE AUTO 0.03 K/mm3 (0.00-0.10); IMMATURE GRAN PERCENT AUTO 1 % (0-1); LYMPHOCYTES ABSOLUTE AUTO 1.24 K/mm3 (0.84-5.20); LYMPHOCYTES PERCENT AUTO 19 % (21-46); MONOCYTES ABSOLUTE AUTO 0.38 K/mm3 (0.16-1.47); MONOCYTES PERCENT AUTO 6 % (4-13); Mean Corpuscular HGB 34.6 pg (26.0-34.0); Mean Corpuscular HGB Conc 34.5 g/dL (31.5-36.5); Mean Corpuscular Volume 101 fL (80-100); Mean Platelet Volume 9.5 fL (9.1-12.4); NEUTROPHILS ABSOLUTE AUTO 4.79 K/mm3 (1.96-9.15); NEUTROPHILS PERCENT AUTO 74 % (41-73); Platelet Count 169 K/mm3 (150-400); RDW Coefficient Variation 14.8 % (11.7-14.2); RDW Standard Deviation 54.7 fL (35.1-46.3); Red Blood Cell Count 4.13 M/mm3 (3.80-5.20); White Blood Cell Count 6.52 K/mm3 (4.00-11.30)
[2024-01-17 05:49] LABS: Bun/Creatinine Ratio 19.1 (12.0-20.0); Calcium, Blood 9.9 mg/dL (8.5-10.1); Creatinine, Blood 0.58 mg/dL (0.40-1.00); Potassium, Blood 3.3 mmol/L (3.5-5.5)
--- NOTE | 2024-01-17 06:33 | NUR ---
LINTING MACHINE OPERATOR SUMMARY URINE CONTINUES TO BE DARK AND PT STILL HAS POOR INTAKE OF FLUIDS AND FOOD. ENCOURAGED HER TO DRINK AND HELD CUP UP TO HER MOUTH WITH EACH INTERACTION TONIGHT. PT APPEARS TO STILL BE WITHDRAWING FROM ALCOHOL WITH ANXIETY, FIDGITING, RESTLESSNESS/RESTLESS LEGS, HALLUCINATIONS AND CONFUSION. SHE APPEARS TO HAVE HER NIGHTS AND DAYS SWITCHED, SLEEPING A LOT DURING THE DAY AND SPENDING MOST OF THE NIGHT AWAKE. PT DOESNT WANT TO BE MOVED OR TURNED DESPITE EDUCATION. WE DID TURN HER EVERY 2 HOURS WITH A LOT OF COAXING AND IT CAUSED HER SEVERE PAIN EVERY TIME. MEDICATED WITH 1MG MORPHINE BEFORE TURNING HER AND IT SHE SAID IT HELPED A LOT. WE DID WEAN HER OFF OXYGEN THIS SHIFT. SHE IS CURRENTLY SATING 90-94% ON RA WITH A HISTORY OF COPD. ENCOURAGING COUGHING AND DEEP BREATHING WITH EACH REPOSITION. PT DID FINALLY HAVE A HARD BOWEL MOVEMENT TONIGHT, AFTER GOING SEVERAL DAYS WITHOUT A BM.
[2024-01-17 07:15] VITALS: BP 162/82
[2024-01-17] MEDS ORDERED: Potassium Chloride 20 MEQ TabCR PO ONE ×2 (08:00→10:45)
[2024-01-17 14:23] VITALS: BP 144/74
--- NOTE | 2024-01-17 16:39 | NUR ---
SHIFT SUMMARY PATIENT IN BED THIS SHIFT. CIWAS PERFORMED PER PROTOCOL, NO MEDICATIONS REQUIRED OF NOW. MEDICATED FOR NECK PAIN X1 WITH OXY. VERY TIRED THIS SHIFT, DIFFICULT TO ROUSE LONG ENOUGH FOR ADEQUATE ORAL INTAKE AND MEDICATIONS. DINNER TIME MEDS GIVEN LATE FOR THIS REASON. ASPEN COLLAR IN PLACE THIS SHIFT. FAMILY IN ROOM, SUPPORTIVE AND APPROPRIATE. DR BARBOUR ORDERED FOR WINE TO BE GIVEN WITH MEALS IF PATIENT ASKS, SON PROVIDED BOTTLE WHICH WAS PLACED IN S PANTRY FRIDGE WITH LABEL. PUREWICK IN PLACE. NO BM. CALL LIGHT IN REACH, NOT ABLE TO MAKE NEEDS KNOWN AT THIS TIME. CARES ONGOING, LOW BED AND ALARM ON. ACCEPTING OF TURNS AND POSITIONING.
[2024-01-17 19:21] VITALS: BP 141/82
[2024-01-18 04:16] VITALS: BP 177/67
[2024-01-18 05:05] VITALS: BP 158/82
[2024-01-18 05:25] LABS: BASOPHILS ABSOLUTE AUTO 0.04 K/mm3 (0.00-0.23); BASOPHILS PERCENT AUTO 1 % (0-2); EOSINOPHILS ABSOLUTE AUTO 0.06 K/mm3 (0.00-0.68); EOSINOPHILS PERCENT AUTO 1 % (0-6); Hematocrit 44.3 % (33.0-51.0); Hemoglobin 15.2 g/dL (11.5-16.0); IMMATURE GRAN ABSOLUTE AUTO 0.08 K/mm3 (0.00-0.10); IMMATURE GRAN PERCENT AUTO 1 % (0-1); LYMPHOCYTES ABSOLUTE AUTO 1.17 K/mm3 (0.84-5.20); LYMPHOCYTES PERCENT AUTO 20 % (21-46); MONOCYTES ABSOLUTE AUTO 0.38 K/mm3 (0.16-1.47); MONOCYTES PERCENT AUTO 6 % (4-13); Mean Corpuscular HGB 35.1 pg (26.0-34.0); Mean Corpuscular HGB Conc 34.3 g/dL (31.5-36.5); Mean Corpuscular Volume 102 fL (80-100); Mean Platelet Volume 9.2 fL (9.1-12.4); NEUTROPHILS ABSOLUTE AUTO 4.26 K/mm3 (1.96-9.15); NEUTROPHILS PERCENT AUTO 71 % (41-73); Platelet Count 183 K/mm3 (150-400); RDW Coefficient Variation 14.5 % (11.7-14.2); RDW Standard Deviation 54.7 fL (35.1-46.3); Red Blood Cell Count 4.33 M/mm3 (3.80-5.20); White Blood Cell Count 5.99 K/mm3 (4.00-11.30)
[2024-01-18 05:53] LABS: Bun/Creatinine Ratio 17.6 (12.0-20.0); Calcium, Blood 9.9 mg/dL (8.5-10.1); Creatinine, Blood 0.57 mg/dL (0.40-1.00); Potassium, Blood 3.7 mmol/L (3.5-5.5)
--- NOTE | 2024-01-18 06:43 | NUR ---
REGULATORY TECHNICIAN SUMMARY NO ACUTE CHANGES OVERNIGHT. URINE IS A BIT SAW HANDLE ASSEMBLER WE WERE ABLE TO GET PATIENT TO DRINK MORE WATER TONIGHT. SHE STILL HAS HER DAYS AND NIGHTS FLIPPED, SLEEPING A LOT DURING THE DAY AND STAYING AWAKE MOST OF THE NIGHT. SHE STILL HAS SOME WITHDRAWL SYMPTOMS AT NIGHT, SOME ANXIETY, CONFUSION, HALLUCINATIONS, RESTLESS LEGS, AND FIDGITING. WAS ABLE TO MAKE HER COMFORTABLE WITH AVAILABLE MEDICATIONS. HER NECK CAUSES HER SEVERE PAIN, ESPECIALLY WHEN MOBILIZING OR TURNING HER. MEDICATED HER WITH 1MG OF IV MORPHINE DURING MOBILIZATION HELPED A LOT AND WE WERE ABLE TO DO SOME RANGE OF MOTION WITH HER ARMS AND LEGS AND SOME LIGHT BED EXERCISES. PT IS STILL DOING OK OFF THE OXYGEN, SATS 90-93%, BUT WITH HER COPD, WE WILL CONTINUE TO MONITOR HER OFF THE OXYGEN. SHE IS STILL EXTREMELY RELUCTANT TO MOVE AT ALL, AND REQUIRES A LOT OF CONVINCING, COAXING, AND OFFERING OF PAIN MEDS BEFORE SHE WILL ALLOW HERSELF TO BE MOVED. HOPING SHE DRINKS A LITTLE WINE WITH MEALS TODAY. SHE DID NOT WANT TO EAT OR DRINK ANYTHING LAST NIGHT AND I HAD TO BEG HER TO TAKE EVERY SIP OF WATER THAT SHE HAD.
[2024-01-18 07:13] VITALS: BP 164/84
[2024-01-18 15:27] VITALS: BP 155/84
--- NOTE | 2024-01-18 17:53 | NUR ---
SHIFT SUMMARY PATIENT IN BED THIS SHIFT, PUREWICK IN PLACE, NO BM. ACCEPTING OF TURNS AND REPOSITIONING, PAINFUL WITH MOVEMENTS. LETHARGIC MOST OF SHIFT, A COUPLE EPISODES OF PULLING AT CLOTHING AND C/O PAIN TO NECK. GIVEN APAP AND OXYCODONE FOR PAIN. ASPEN COLLAR IN PROPER PLACE. EPISODES OF CHOKING ON WATER AND UNABLE TO COORDINATE SWALLOWING CAPSULES. ORDER FOR SPEECH EVAL AND IV PROTONIX A RESULT OF THIS. MINIMAL ORAL INTAKE. DECLINED WINE WHEN ASKED. FAMILY IN ROOM, HELPFUL AND SUPPORTIVE WITH CARES. CALL LIGHT IN REACH, BED LOW, ALARM ON. CARES ONGOING.
[2024-01-18 20:57] VITALS: BP 160/103
[2024-01-19 03:50] VITALS: BP 164/105
[2024-01-19 04:16] VITALS: BP 152/96
[2024-01-19 04:54] LABS: BASOPHILS ABSOLUTE AUTO 0.06 K/mm3 (0.00-0.23); BASOPHILS PERCENT AUTO 1 % (0-2); EOSINOPHILS ABSOLUTE AUTO 0.07 K/mm3 (0.00-0.68); EOSINOPHILS PERCENT AUTO 1 % (0-6); Hematocrit 44.8 % (33.0-51.0); Hemoglobin 15.3 g/dL (11.5-16.0); IMMATURE GRAN PERCENT AUTO 2 % (0-1); LYMPHOCYTES ABSOLUTE AUTO 1.56 K/mm3 (0.84-5.20); LYMPHOCYTES PERCENT AUTO 29 % (21-46); MONOCYTES ABSOLUTE AUTO 0.39 K/mm3 (0.16-1.47); MONOCYTES PERCENT AUTO 7 % (4-13); Mean Corpuscular HGB 35.2 pg (26.0-34.0); Mean Corpuscular HGB Conc 34.2 g/dL (31.5-36.5); Mean Corpuscular Volume 103 fL (80-100); Mean Platelet Volume 9.2 fL (9.1-12.4); NEUTROPHILS ABSOLUTE AUTO 3.19 K/mm3 (1.96-9.15); NEUTROPHILS PERCENT AUTO 59 % (41-73); Platelet Count 188 K/mm3 (150-400); RDW Coefficient Variation 14.4 % (11.7-14.2); RDW Standard Deviation 54.8 fL (35.1-46.3); Red Blood Cell Count 4.35 M/mm3 (3.80-5.20); White Blood Cell Count 5.37 K/mm3 (4.00-11.30)
[2024-01-19 05:45] LABS: Bun/Creatinine Ratio 19.5 (12.0-20.0); Calcium, Blood 10.3 mg/dL (8.5-10.1); Creatinine, Blood 0.56 mg/dL (0.40-1.00); Potassium, Blood 3.6 mmol/L (3.5-5.5)
--- NOTE | 2024-01-19 07:29 | NUR ---
YOUTH PROBATION OFFICER SUMMARY PT IMPROVED OVERNIGHT WITH HER ALCOHOL WITHDRAWL. MUCH LESS ANXIETY AND AGITATION. DID NOT ADMINISTER ANY LIBRIUM OR ATIVAN. SHE IS STILL CONFUSED BUT REDIRECTABLE AND NON-PHARM SOOTHING IS EFFECTIVE. SHE IS STILL NOT WANTING TO EAT OR DRINK AND IT TOOK HER ALL NIGHT AND SEVERAL RN ATTEMPTS TO GET HER TO DRINK ONE GLASS OF WATER. SHE DOESNT WANT ANY WINE OR FOOD. EVEN HER DAUGHTER COULDNT GET HER TO EAT DINNER, ONLY ONE DRINK OF ENSURE. LET DAY SHIFT KNOW THAT KEEPING UP WITH HER PAIN MEDS IS VERY IMPORTANT BECAUSE SHE WILL NOT MOVE WITHOUT THEM AND SHE WILL NOT ALLOW STAFF TO TURN HER WITHOUT THEM. HER NIGHTS AND DAYS ARE STILL FLIPPED. SHE STAYS AWAKE MOST OF THE NIGHT AND SLEEPS MOST OF THE DAY.
[2024-01-19 08:22] VITALS: BP 155/84
[2024-01-19] MEDS ORDERED: Pantoprazole Sodium 40 MG Injection IV SCH (09:00)
[2024-01-19 15:00] VITALS: BP 151/83
--- NOTE | 2024-01-19 16:38 | NUR ---
PATIENT FAMILY TO BEDSIDE. PATIENT WITH DECREASED ACTIVITY AND NO PO INTAKE TODAY. FAMILY CONCERNED OF WORSENING CONDITION AND HAVE QUESTIONS REGARDING HER PLAN OF CARE IN LIGHT OF THIS DEGRESSION. PATIENT LISTED FULL CODE, BUT SON IS CERTAIN HER POLST FORM SAID "DNR"; FAMILY IS UNABLE TO FIND THIS FORM. DAUGHTER STATED WHEN PATIENT WAS TALKING TO DOCTOR IN ED, SHE WASN'T SURE WHAT SHE WANTED, SO THEY DETERMINED TO KEEP HER FULL CODE. FAMILY NOW HAS QUESTIONS REGARDING WHETHER THIS IS APPROPRIATE. EDUCATION PROVIDED REGARDING PALLIATIVE CARE VERSUS HOSPICE AND QUALITY VERSUS QUANTITY OF LIFE. PALLIATIVE CONSULT PLACED AND CHARLES JESSICA, TO BEDSIDE.
--- NOTE | 2024-01-19 16:41 | NUR ---
Met with Sterling and Mireille, pt's son and daughter in law. Sterling states the patient's health has been declining for over a year since she fractured her hip and had a repair. They also state she has been drinking alcohol daily, about 6 large cups of wine daily by 2 in the afternoon. She was brought into the hospital this stay for a fall and fracture of C2 spine. She is also utilizing a c-collar. The patient appears to be declining more even from last night to today, and they are now discussing possible hospice for this patient. Sterling states he has a brother named Phillip, and the 2 of them along with Mireille will make the decision. They state they would like to hold off on making any decision for another day or 2, to see if she improves. New POLST completed as DNR as family states pt's wishes are.
--- NOTE | 2024-01-19 19:55 | NUR ---
END OF SHIFT SUMMARY: ROUSES TO VERBAL AND PAINFUL STIMULI; SLEEPING MAJORITY OF THE DAY. INTERMITTENTLY AWAKE ONCE FAMILY ARRIVED AROUND 1700. DISCUSSION WITH FAMILY REGARDING PLAN OF CARE FOR CODE STATUS. PALLIATIVE CONSULTED AND POLST CHANGED TO DNR AND FAMILY WOULD LIKE TO ALLOW 24-HOURS TO SEE IF PATIENT S CONDITION IMPROVES OR DECOMPENSATES. MEDICATED x1 PAIN MEDS TODAY, BUT SHE OTHERWISE HAS BEEN ASLEEP ALL DAY. NOT TAKING ANYTHING BY MOUTH INCLUDING MEDS, FLUIDS OR FOOD. BED IN LOWEST POSITION. CALL LIGHT WITHIN REACH. ALL NEEDS MET. REPORT TO ONCOMING RN.
[2024-01-19 20:24] VITALS: BP 143/78
[2024-01-20 04:33] LABS: BASOPHILS ABSOLUTE AUTO 0.03 K/mm3 (0.00-0.23); BASOPHILS PERCENT AUTO 0 % (0-2); EOSINOPHILS ABSOLUTE AUTO 0.06 K/mm3 (0.00-0.68); EOSINOPHILS PERCENT AUTO 1 % (0-6); Hematocrit 45.4 % (33.0-51.0); Hemoglobin 15.8 g/dL (11.5-16.0); IMMATURE GRAN ABSOLUTE AUTO 0.08 K/mm3 (0.00-0.10); IMMATURE GRAN PERCENT AUTO 1 % (0-1); LYMPHOCYTES ABSOLUTE AUTO 1.31 K/mm3 (0.84-5.20); LYMPHOCYTES PERCENT AUTO 17 % (21-46); MONOCYTES ABSOLUTE AUTO 0.45 K/mm3 (0.16-1.47); MONOCYTES PERCENT AUTO 6 % (4-13); Mean Corpuscular HGB 34.7 pg (26.0-34.0); Mean Corpuscular HGB Conc 34.8 g/dL (31.5-36.5); Mean Corpuscular Volume 100 fL (80-100); NEUTROPHILS ABSOLUTE AUTO 5.62 K/mm3 (1.96-9.15); NEUTROPHILS PERCENT AUTO 74 % (41-73); Platelet Count 214 K/mm3 (150-400); RDW Coefficient Variation 14.5 % (11.7-14.2); RDW Standard Deviation 53.7 fL (35.1-46.3); Red Blood Cell Count 4.55 M/mm3 (3.80-5.20); White Blood Cell Count 7.55 K/mm3 (4.00-11.30)
[2024-01-20 04:59] VITALS: BP 155/88
[2024-01-20 05:05] LABS: Albumin, Blood 2.3 g/dL (3.4-5.0); Albumin/Globulin Ratio 0.6 (0.8-1.8); Bilirubin, Total 0.5 mg/dL (0.1-1.0); Bun/Creatinine Ratio 18.7 (12.0-20.0); Calcium, Blood 9.9 mg/dL (8.5-10.1); Creatinine, Blood 0.54 mg/dL (0.40-1.00); Globulin, Blood 4.1 g/dL (2.2-4.0); Potassium, Blood 3.7 mmol/L (3.5-5.5); Total Protein, Blood 6.4 g/dL (6.4-8.2)
[2024-01-20 07:14] VITALS: BP 163/97
--- NOTE | 2024-01-20 07:49 | NUR ---
LEAD APPLICATION ARCHITECT SUMMARY PT WAS AWAKE A LOT OVERNIGHT. HER WITHDRAWL SYMPTOMS HAVE IMPROVED SIGNIFICANTLY, NO LONGER RECEIVING PRN ATIVAN OR LIBRIUM. SHE IS MUCH LESS AGITATED, ALTHOUGH STILL PLEASANTLY CONFUSED. HER DAUGHTER WAS ABLE TO GET HER TO TAKE SOME PILLS AT BEDTIME AND DRINK SOME ENSURE. IT SEEMS SHE CAN SWALLOW LONG SHE IS EXTREMELY ALERT. SHE WAS ABLE TO TAKE SOME PILLS FOR ME THIS MORNING WELL, BUT ONLY BECAUSE SHE WAS VERY ALERT. SHE HAS AN EXTREMELY POOR APPETITE AND GOALS OF CARE NEEDS TO BE A DAILY PART OF CONVERSATION WITH FAMILY. DESPITE FREQUENT EFFORTS, WE WERE NOT ABLE TO GET HER TO DRINK ENOUGH WATER OVERNIGHT TO KEEP HER HYDRATED. SHE MAY NEED IVF TODAY AND THIS WAS PASSED ALONG TO DAY SHIFT RN.
[2024-01-20 14:54] VITALS: BP 136/89
--- NOTE | 2024-01-20 16:17 | NUR ---
Spoke with family this afternoon after ST worked with patient. They understand the pt was made NPO today, and have decided to give pt doesn't "bounce back" as they call it. Pt struggled today working with ST and PT. Will re-evaluate tomorrow.
[2024-01-20 19:11] VITALS: BP 130/67
--- NOTE | 2024-01-20 19:20 | NUR ---
DAY SHIFT SUMMARY: SLEEPING MOST OF DAY WITH INTERMITTENT WAKENING. UNABLE TO PARTICIPATE IN PT/OT DUE TO PAIN. SWALLOW EVAL PERFORMED AND RECOMMENDED NPO DUE TO ASPIRATION RISK; NO PO MEDS. PROVIDER NOTIFIED BY ST. FAMILY AT BEDSIDE ALL DAY. THEY WOULD LIKE ANOTHER DAY TO DETERMINE IF THEY THINK SHE WILL IMPROVE OR NOT. PALLIATIVE CARE NURSE TO ROOM TO DISCUSS WITH FAMILY. FAMILY STILL TRYING TO PROVIDE WITH FOOD AND DRINK. EDUCATED ON ASPIRATION RISK.
[2024-01-21] MEDS ORDERED: NS 1,000 ML IV SCH (00:50)
[2024-01-21 03:48] VITALS: BP 145/74
[2024-01-21 07:22] VITALS: BP 170/78
--- NOTE | 2024-01-21 07:45 | NUR ---
CONDUCTOR FREIGHT SUMMARY PT WAS MADE NPO BY FINISHED CARPET INSPECTOR THERAPY. CALLED MD AND RECEIVED ORDER FOR NS @ 75/HR FOR HYDRATION WHILE PT IS NPO. BECAUSE SHE WAS NOT ALLOWED TO HAVE HER OXYCODONE SHE WAS EXPECIALLY PAINFUL IN HER NECK. WE GAVE 2MG IV MORPHINE EVERY 4 HOURS INSTEAD. BECAUSE PT WAS SO PAINFUL, SAID IT WAS OK TO GIVE A LITTLE EARLY, EVEN THOUGH IT HAD ONLY BEEN 3 HOURS. REPOSITIONED EVERY 2 HOURS. PT AND FAMILY WILL NEED ONGOING DISCUSSIONS OF GOALS OF CARE.
--- NOTE | 2024-01-21 08:27 | NUR ---
PT GIVEN MORNING MEDS PER EMAR EXCEPT FOR ORAL SHE'S NPO. TOOK ADDITIONAL BLOOD PRESSURE READING THIS MORNING WAS ELEVATED. WILL NOTIFIY DOCTOR. HAS NORMAL SALINE RUNNING AT 75MLS/HR AND HAS SON AT BEDSIDE. HAS CALL LIGHT WITHIN REACH AND IS RESTING WITH EVEN UNLABORED BREATHING.
--- NOTE | 2024-01-21 12:38 | NUR ---
PT READJUSTED AND BRIEFS CHANGED,COMPLAINED ABOUT 6/10 PAIN AND ASKED FOR PAIN MEDICATION, MEDICATED PER EMAR.
[2024-01-21] MEDS ORDERED: Scopolamine Hydrobromide Patch TOP PRN (14:05)
[2024-01-21] MEDS ORDERED: Morphine Sulfate 20 MG/1ML 1 ML Oral Syringe SL PRN (14:05)
[2024-01-21] MEDS ORDERED: Atropine Sulfate 1% Opth Soln 2ML BTL SL PRN (14:05)
[2024-01-21] MEDS ORDERED: LORazepam 0.5 MG Tab PO PRN (14:20)
--- NOTE | 2024-01-21 14:42 | NUR ---
PT ASKED FOR PAIN MEDICATION FOR 8 PAIN. PER EMAR WAS MEDICATED, WILL CHECK BACK IN TO SEE HOW SHE FEELS. IS TALKING WITH FAMILY, HAS CALL LIGHT WITHIN REACH AND BED AT THE LOWEST SETTING.
--- NOTE | 2024-01-21 17:41 | NUR ---
END OF SHIFT SUMMARY: PT A&OX1-3 THROUGHOUT THE SHIFT. RECOGNIZES SELF & CHILDRENT BUT OCCASIONALY WAS ABLE TO SAY WHERE SHE WAS AT. SATTING >92% ON ROOM AIR. PATIENT HAS BEEN PLACED ON COMFORT CARE. NORMAL SALINE WAS DC'D AND NEW MEDICATIONS WERE ADDED PER COMFORT CARE PROTOCOL. WAS MEDICATED WITH MORPHINE PER EMAR AND ROXANOL FOR PAIN TWICE. ORAL CARE WAS DONE Q4 AND REPOSITIONED Q2. PUREWICK HAS BEEN DRAINING WITH YELLOW/STEVE URINE AND SUCTION IS SET UP AT BEDSIDE. WILL NOTIFY ONCOMING [employer].
--- NOTE | 2024-01-22 06:15 | NUR ---
SHIFT SUMMARY: Pt is admitted for C2 fx and is a DNR. is on comfort care. Is alert and able to make some needs known. ADLs have been 2p but she did not get out of bed. Pain has been managed with PRN pain management.
--- NOTE | 2024-01-22 16:17 | NUR ---
PT HAS BEEN RESTING COMFORTABLY. PT HAS BEEN TREATED FOR PAIN PER EMAR AND TURNED Q2 HRS. FAMILY HAS BEEN AT BEDSIDE AND HAS BEEN INTERACTING WITH PT'S CARE WHEN PT MAY NEED SOME ORAL SUCTION. ARRANGEMENTS HAVE BEEN MADE FOR 01/23/24 FOR FAMILY TO TAKE PT HOME ON HOPSPICE. PT RESTING PEACEFULLY WITH FAMILY IN ROOM. WILL CONTINUE TO MONITOR.
--- NOTE | 2024-01-23 06:39 | NUR ---
SHIFT SUMMARY. PATIENT IS ALERT TO SELF. FAMILY IN AT BEDSIDE TIL 2300. PATIENT ASSESSED FOR PAIN-PAIN MEDICATED PER ORDERS X4; SEE EMAR. PATIENT HAS A PRODUCTIVE COUGH-YELLOW/WHITE SPUTUM; SUCTION IN USE. PATIENT TURNED Q2. FREQUENT CHECKS DONE. PATIENT HAD A 2 HOUR PERIOD WHERE PATIENT APPEARED TO BE RESTING WELL W/O COUGHING. PATIENT HAS PUREWICK IN PLACE. PATIENT HAS FURROWED BROW WHEN REPOSITIONING. ATROPINE GIVEN FOR SECRETIONS. PATIENTS SON IN THIS AM AT 0620 TO VISIT PATIENT. BED IS LOCKED IN THE LOWEST POSITION, CALL LIGHT IS IN REACH. BED EXIT ALARM IS ON FOR PATIENT SAFETY. REPORT GIVEN TO DAYSHIFT.
[2024-01-23] MEDS ORDERED: LORA.5 PO (11:18)
[2024-01-23] MEDS ORDERED: MIRALAX17 GM PO (11:20)
[2024-01-23] MEDS ORDERED: MORP20L SL (11:20)
--- NOTE | 2024-01-23 12:45 | NUR ---
SHIFT/DISCHARGE SUMMARY: PATIENT A/O TO SELF AND FAMILY AT BEDSIDE. PATIENT ON CONFORT CARE MEASURE, MEDICATED FOR PAIN PER EMAR AND REPOSITIONING FOR COMFORT. PATIENT REFUSED ORAL INTAKE. ORAL CARE DONE. PATIENT FAMILY AT BEDSIDE T/O THE DAY. PATIENT/FAMILY HAS NO COMPLAINTS OR DENIES NEW CONCERNED. PIV DC'D BY MACHINE HEEL SPRAYER. PATIENT DISCHARGE HOME c HOSPICE CARE THRU [facility]. DISCHARGE INSTRUCTIONS PACKET GIVEN TO PATIENT. EDUCATED PATIENT/FAMILY AT BEDSIDE REGARDING HOSPICE, END OF LIFE CARE AND MANAGING PAIN TO HOME. PATIENT AND FAMILY AT BEDSIDE VERBALIZED UNDERSTANDING AND NO FURTHER QUESTIONS. ALL PATIENT PERSONAL BELONGINGS WERE SENT HOME c THE PATIENT. PATIENT LEFT THE ROOM AT 1238 TRANSPORTED VIA [facility] BY [facility].
== END 2024-01-23 12:49 | disposition hospice, home (50) | DRG 551 ==
LOC: MEDS 13:35 → ENPENDDIS 01-23 11:14 → MEDS 01-23 12:49
PROVIDERS: Internal Medicine; ADMIT Internal Medicine
PROC: HZ2ZZZZ Detoxification Services for Substance Abuse Treatment (ICD-10-PCS; principal; 2024-01-14)
DX: S12.120A Other displaced dens fracture, initial encounter for closed fracture (principal); G93.41 Metabolic encephalopathy; F10.239 Alcohol dependence with withdrawal, unspecified; N39.0 Urinary tract infection, site not specified; J44.9 Chronic obstructive pulmonary disease, unspecified; D49.89 Neoplasm of unspecified behavior of other specified sites; K21.9 Gastro-esophageal reflux disease without esophagitis; Z51.5 Encounter for palliative care; Z66 Do not resuscitate; R54 Age-related physical debility; E78.5 Hyperlipidemia, unspecified; W18.39XA Other fall on same level, initial encounter; I27.20 Pulmonary hypertension, unspecified; K44.9 Diaphragmatic hernia without obstruction or gangrene; Z88.5 Allergy status to narcotic agent; Z88.0 Allergy status to penicillin; Z88.1 Allergy status to other antibiotic agents
CPT/HCPCS: 36415; 71260; 80048; 80053; 85025; 92610; 94760; 97110; 97162; 97165; 97530; A9270; J0696; J1644; J2060; J2270; J2470; J3411; J7030; J7050; Q9967